=== PATIENT | female | born 1955 | race Caucasian/White ===

== ENCOUNTER 2017-01-31 08:43 | Day surgery (SDC) | payer OTHER ==
[2017-01-30 18:43] VITALS: BMI 24.8
[~2017-01-31 08:43] MED LIST: ACETAMINOPHEN 325 MG TABLET (FP) PO PRN; CIPROFLOXACIN HCL 0.3% OPHTH 2.5ML BOTTLE OP SCH; MITOMYCIN 0.02% EYE DROPS - 2ML VIAL IO ONE; TRIAMCINOLONE ACET 40MG/1ML VIAL IJ ONE
[2017-01-31] MEDS ORDERED: CIPROFLOXACIN 0.3% EYE DROPS 5 ML BOTTLE ONE (09:18)
[2017-01-31 09:24] VITALS: TEMP 98.1
[2017-01-31] MEDS ORDERED: TETRACAINE 0.5% OPHTH SOLN 2 ML BOTTLE ONE (10:12)
[2017-01-31] MEDS ORDERED: LIDOCAINE 1%/EPI 1:100000 (50 ML MULTI DOSE VIAL) ONE (10:14)
[2017-01-31] MEDS ORDERED: EPINEPHrine/PF 1 MG/1 ML (1:1,000) AMPULE ONE (10:14)
[2017-01-31] MEDS ORDERED: MIDAZOLAM HCL 2 MG/2 ML SINGLE DOSE VIAL ONE ×2 (10:18→11:39)
[2017-01-31] MEDS ORDERED: TETRACAINE 0.5% OPHTH SOLN 2 ML BOTTLE TP ONE (10:21)
[2017-01-31] MEDS ORDERED: LIDOCAINE 1%/EPI 1:100000 (50 ML MULTI DOSE VIAL) INF ONE (10:31)
[2017-01-31] MEDS ORDERED: TRIAMCINOLONE ACET 40MG/1ML VIAL ONE (10:37)
[2017-01-31] MEDS ORDERED: KETOROLAC TROMETHAMINE 30 MG/1 ML VIAL ONE (11:02)
[2017-01-31] MEDS ORDERED: TRIAMCINOLONE ACET 40MG/1ML VIAL IJ ONE (11:57)
[2017-01-31 13:05] VITALS: BP 116/66; PULSE 72
--- NOTE | 2017-02-01 11:55 | OP ---
DATE OF OPERATION: DATE OF DICTATION: 02/01/2017 PROCEDURE: 1. Excision of recurrent pterygium with conjunctival autografting 2. Amniotic membrane transplantation. PREOPERATIVE DIAGNOSIS: Recurrent pterygium right eye POSTOPERATIVE DIAGNOSIS: Recurrent pterygium right eye ANESTHESIA: Topical/MAC. COMPLICATIONS: None. PROCEDURE: Patient was brought to the operating room. After successfully identifying along with the operative site, she was then prepped and draped in the usual sterile fashion including 5% Betadine solution in the conjunctival sac. An eyelid drape and eyelid speculum was then placed into the right eye. The pterygium was inspected, and a symblepharon like recurrence was noted, which was pulling the caruncle over to the limbus. The pterygium was freed from the corneal surface with blunt dissection using colibri forceps, roney scissors and weck nathalie sponges. A significant amount of adhesion, however, was noted at the limbus/sclera as well as in the cornea. After the pterygium was freed, 2 relaxing incisions were made in the conjunctiva superior and inferior recurrence. At this point, the remaining conjunctiva and caruncle retracted almost completely medially. A significant amount of subconjunctival fibrovascular tissue was noted medially, over the site of the medial rectus tendon. This was first dissected superiorly and inferiorly to the site of the medial rectus tendon and then small relaxing incisions made again in the residual conjunctiva. The subconjunctival fibrovascular tissue over the medial rectus tendon was carefully dissected but care was made to not damage the medial tendon by keeping the dissection superficial, and creating a plane by elevating tissue during the dissection. The cornea and adjacent sclera/ limbus was further cleaned with roney scissors and at times a 57 blade. . At this time, the conjunctiva was noted to be completely retracted, and there was minimal residual conjunctiva medially associated with the the caruncle. The decision to not use mitomycin C as there was not adequate conjunctival tissue to coverage sponges soaked in mitomycin C. The conjunctival defect measured 12 x 10 mm vertically and horizontally, respectively. Attention was then placed to the superior temporal conjunctiva. Conjunctival fibrosis was noted here from prior conjunctival autografting. Using lidocaine 1 %, the conjunctiva was elevated, and a graft was created. A full-sized graft was not possible, given the size needed as well as the prior scarring. A 5 x 10 mm graft was fashioned. This graft was then secured 1 mm from the limbus with five 10-0 nylon sutures. The amniotic membrane was then used to cover the entire graft as well as cover the remaining the conjunctival defect. This was secured with eight 10-0 nylon sutures. At the end of the procedure, the eye was noted to be free with motion. No restriction of any gaze noted, both grafts well secured. Subconjunctival Kenalog given, topical vancomycin given, the eye patched and shielded and the patient discharged from the operating room in a stable condition. LUCI DOMINGUEZ M.D. [id number] MTDD
--- NOTE | 2017-02-07 11:18 | PATH ---
Surgical Pathology Report Patient Name: KRISTY IDALLO [facility]. Rec. #: [id number] /Age/Gender: 1955 (Age: 61) / F Account: [id number] Location: [facility] SURGICAL Taken: 01/31/2017 Received: 01/31/2017 Reported: 02/01/2017 Physicians: Bony Nix M.D. Specimen(s) Received PTERYGIUM RIGHT EYE Clinical History Recurrent pterygium right eye Final Diagnosis CONJUNCTIVA, RIGHT EYE, PTERIGIUM, EXCISION: CONJUNCTIVA WITH FOCAL ELASTIC DEGENERATION, FIBROSIS AND NEOVASCULARIZATION, CONSISTENT WITH PTERIGIUM. Electronically Signed Deny Mckenna M.D. Gross Description Received in formalin labeled "recurrent pterygium" are 3 pink-sanabria, irregular portions of soft tissue ranging from 0.1-0.6 cm in greatest dimension. The specimens are submitted in toto in one cassette. /01/31/201701/31/2017
== END 2017-01-31 13:14 | disposition home or self-care (01) ==
LOC: JASU-SURG 08:43
PROVIDERS: ATTEND Ophthalmology
PROC: 08R8X7Z Replacement of Right Cornea with Autologous Tissue Substitute, External Approach (ICD-10-PCS; principal; 2017-01-31 10:00)
DX: H11.061 Recurrent pterygium of right eye (principal)
CPT/HCPCS: 88304-TC